=== PATIENT | female | born 1960 | race Two or more races ===

== ENCOUNTER 2018-11-12 08:38 | Emergency (ER) | payer MEDICAID ==
[~2018-11-12] VITALS: Ht 157.5 cm; Wt 59.1 kg
[2018-11-12 09:38] VITALS: BP 147/66
== END 2018-11-12 09:49 | disposition home or self-care (01) ==
LOC: EMS 08:39
DX: J40 Bronchitis, not specified as acute or chronic (principal); Z90.710 Acquired absence of both cervix and uterus